=== PATIENT | female | born 1990 | race African-American/Black ===

== ENCOUNTER 2018-08-24 21:56 | Outpatient (CLI) | payer OTHER | END 2018-08-24 23:59 | disposition home or self-care (01) | LOC: INF 21:56 | DX: Z87.51 Personal history of pre-term labor (principal); Z34.83 Encounter for supervision of other normal pregnancy, third trimester | CPT/HCPCS: 96372; J1100 ==

== ENCOUNTER 2018-08-25 21:53 | Outpatient (CLI) | payer OTHER | END 2018-08-25 23:57 | disposition home or self-care (01) | LOC: INF 21:53 | DX: O60.00 Preterm labor without delivery, unspecified trimester (principal) | CPT/HCPCS: 96372; J1100 ==

== ENCOUNTER 2022-08-18 08:33 | Outpatient (CLI) | payer OTHER | END 2022-08-18 23:05 | disposition home or self-care (01) | LOC: CT 08:33 | PROVIDERS: ATTEND Nurse Practitioner Family | DX: R51.9 Headache, unspecified (principal) ==